=== PATIENT | female | born 1950 | race Caucasian/White ===

== ENCOUNTER 2020-07-07 06:34 | Day surgery (SDC) | payer MEDICARE, BC ==
[~2020-07-07 06:34] MED LIST: Acetaminophen 325 MG Tab PO SCH; Lactated Ringers 1,000 ML IV SCH; Lidocaine 1%/Sod Bicarbonate in NS 8.4% 1 ML Syringe IDERM PRN; Lidocaine 2% with EPINEPHrine 1:200,000 20 ML SDV ONE; Midazolam 1 MG/ML 2 ML SDV ONE; Pregabalin 25 MG Cap PO SCH; Propofol 200 MG/20 ML SDV ONE; Sodium Chloride 0.9% 10 ML Syringe FLUSH PRN; fentaNYL 100 MCG/2 ML SDV ONE; oxyCODONE ER 10 MG TAB.ER PO SCH
[2020-07-07] MEDS ORDERED: Dexmedetomidine 200 MCG/2 ML SDV ONE (06:38)
[2020-07-07] MEDS ORDERED: Ropivacaine 0.5% 5 MG/ML 30 ML SDV ONE (06:39)
[2020-07-07] MEDS ORDERED: Dexamethasone 4 MG/ML 5 ML MDV ONE (06:45)
[2020-07-07] MEDS ORDERED: Vancomycin 1 GM SDV ONE (07:28)
--- NOTE | 2020-07-07 07:37 | PCM.PREANE ---
Preanesthetic Assessment - Procedure Proposed Procedure: Left reverse total shoulder replacement - Anesthesia/Transfusion/Family Hx Anesthesia History: Prior Anesthesia Without Reaction Transfusion History: No Prior Transfusion(s) Intubation History: Unknown - Review of Systems General: No Symptoms Pulmonary: No Symptoms Cardiovascular: No Symptoms Gastrointestinal: No Symptoms Neurological: No Symptoms Other: Reports: None - Physical Assessment NPO Status Date: 07/06/20 NPO Status Time: 18:30 Vital Signs: Last Vital Signs Temp 97.9 F 07/07/20 06:30 Pulse 78 07/07/20 07:22 Resp 18 07/07/20 07:22 BP 135/69 07/07/20 07:22 Pulse Ox 98 07/07/20 07:22 Height: 1.6 m Weight: 84.1 kg ASA Class: 2 Mental Status: Alert & Oriented x3 Airway Class: Mallampati = 2 Dentition: Reports: Normal Dentition, [place](s), Bridge Thyro-Mental Finger Breadths: 3 Mouth Opening Finger Breadths: 3 ROM/Head Extension: Full Lungs: Clear to Auscultation, Normal Respiratory Effort Cardiovascular: Regular Rate, Regular Rhythm - Lab Values: Laboratory Last Values MRSA (PCR) Negative 06/27/20 12:50 - Allergies Allergies/Adverse Reactions: Allergies Allergy/AdvReac Type Severity Reaction Status Date / Time furosemide Allergy Other Verified 07/06/20 10:38 nicotine Allergy Rash Verified 07/06/20 10:38 - Acknowledgements Anesthesia Type Planned: General Anesthesia, Regional Block (left interscalene for postoperative pain) Pt an Appropriate Candidate for the Planned Anesthesia: Yes Alternatives and Risks of Anesthesia Discussed w Pt/Guardian: Yes Pt/Guardian Understands and Agrees with Anesthesia Plan: Yes PreAnesthesia Questionnaire HEENT History: Reports: Allergic Rhinitis, Cataract, Impaired Vision Cardiovascular History: Reports: High Cholesterol, Other (See Below) Other Cardiovascular History: palpitations Respiratory History: Reports: Sleep Apnea Other Respiratory History: abnormal chest CT Gastrointestinal History: Reports: GERD, Hemorrhoids, Other (See Below) Other Gastrointestinal History: intermittent constipation Genitourinary History: Reports: None HOSPICE COMMUNITY LIAISON History: Reports: Other (See Below) Other OB/BYN History: postmenopausal Musculoskeletal History: Reports: Other (See Below) Other Musculoskeletal History: right hip pain, right knee pain, right shoulder pain, arthralgia, bone disorder, trapezius muscle strain Neurological History: Reports: Other (See Below) Other Neuro History: benign tremor Psychiatric History: Reports: Depression Endocrine/Metabolic History: Reports: None Hematologic History: Reports: Other (See Below) Other Hematologic History: leukocytosis, macrocytosis Immunologic History: Reports: None Oncologic (Cancer) History: Reports: Breast Dermatologic History: Reports: Other (See Below) Other Dermatologic History: skin neoplasm, seborrheic keratosis, right thigh mass - Infectious Disease History Infectious Disease History: Reports: None - Past Surgical History Head Surgeries/Procedures: Reports: None HEENT Surgical History: Reports: Tonsillectomy Cardiovascular Surgical History: Reports: None Respiratory Surgical History: Reports: None GI Surgical History: Reports: Appendectomy, Colonoscopy, EGD Female Surgical History: Reports: Hysterectomy, Mastectomy Male Surgical History: Reports: None Endocrine Surgical History: Reports: None Neurological Surgical History: Reports: None Musculoskeletal Surgical History: Reports: Carpal Tunnel, Shoulder Surgery Oncologic Surgical History: Reports: Mastectomy - SUBSTANCE USE Tobacco Use Status *Q: Former Tobacco User Recreational Drug Use History: No - HOME MEDS Home Medications: Home Meds Calcium Citrate/Vitamin D3 [Calcitrate + Vit D Cap (315 MG/250 UNITS)] 1 each PO BID 03/03/18 [History] Cholecalciferol (Vitamin D3) [Vitamin D3] 5,000 unit PO DAILY 03/03/18 [History] Pantoprazole Sodium [Protonix] 40 mg PO DAILY 03/03/18 [History] Simvastatin 20 mg PO DAILY 03/03/18 [History] Ubidecarenone [Coq-10] 100 mg PO DAILY 03/03/18 [History] dilTIAZem HCL [Dilt-XR] 120 mg PO DAILY 03/03/18 [History] Anastrozole [Arimidex] 1 mg PO DAILY 07/06/20 [History] Citalopram [Citalopram HBr] 20 mg PO DAILY 07/06/20 [History] Docusate Sodium [Colace] 100 - 300 mg PO DAILY PRN 07/06/20 [History] Famotidine [Pepcid] 20 mg PO BEDTIME 07/06/20 [History] Melatonin 10 mg PO BEDTIME 07/06/20 [History] Multivitamin 1 tab PO DAILY 07/06/20 [History] Aspirin [Aspirin EC] 325 mg PO DAILY #40 tablet. 07/07/20 [Rx] Cyclobenzaprine [Flexeril] 10 mg PO BID PRN #20 tab 07/07/20 [Rx] oxyCODONE 5 - 10 mg PO Q4H PRN #40 tab 07/07/20 [Rx] - CURRENT (IN HOUSE) MEDS Current Meds: Current Medications Acetaminophen (Tylenol) 975 mg PO ONETIME GUERRERO Stop: 07/07/20 13:00 Last Admin: 07/07/20 07:26 Dose: 975 mg Documented by: Lactated Ringer's (Ringers, Lactated) 1,000 mls @ 125 mls/hr IV ASDIRECTED GUERRERO Stop: 07/07/20 23:00 Last Admin: 07/07/20 06:45 Dose: 125 mls/hr Documented by: Lidocaine/Sodium Bicarbonate (Buffered Lidocaine 1% In Ns 8.4%) 0.25 ml IDERM ONETIME PRN PRN Reason: Prior to IV Start Stop: 07/07/20 18:00 Last Admin: 07/07/20 06:45 Dose: 0.25 ml Documented by: Oxycodone HCl (Oxycontin) 10 mg PO ONETIME GUERRERO Stop: 07/07/20 13:00 Last Admin: 07/07/20 07:26 Dose: 10 mg Documented by: Pregabalin (Lyrica) 50 mg PO ONETIME GUERRERO Stop: 07/07/20 13:00 Last Admin: 07/07/20 07:26 Dose: 50 mg Documented by: Sodium Chloride (Saline Flush) 10 ml FLUSH ASDIRECTED PRN PRN Reason: Keep Vein Open Stop: 07/07/20 18:00 Discontinued Medications Dexamethasone (Dexamethasone) Confirm Administered Dose 20 mg .ROUTE .STK-MED ONE Stop: 07/07/20 06:46 Dexmedetomidine HCl (Precedex) Confirm Administered Dose 200 mcg .ROUTE .STK-MED ONE Stop: 07/07/20 06:39 Fentanyl (Sublimaze) Confirm Administered Dose 100 mcg .ROUTE .STK-MED ONE Stop: 07/07/20 06:34 Lidocaine/Epinephrine (Xylocaine-Mpf 2%-Epi 1:200,000) Confirm Administered Dose 20 ml .ROUTE .STK-MED ONE Stop: 07/07/20 06:35 Midazolam HCl (Versed 1 Mg/Ml) Confirm Administered Dose 2 mg .ROUTE .STK-MED ONE Stop: 07/07/20 06:34 Propofol (Diprivan 20 Ml) Confirm Administered Dose 400 mg .ROUTE .STK-MED ONE Stop: 07/07/20 06:34 Ropivacaine (Naropin 0.5%) Confirm Administered Dose 30 ml .ROUTE .STK-MED ONE Stop: 07/07/20 06:40 Tranexamic Acid (Cyklokapron) Confirm Administered Dose 1,000 mg .ROUTE .STK-MED ONE Stop: 07/07/20 07:29 Vancomycin HCl (Vancomycin) Confirm Administered Dose 1 gm .ROUTE .STK-MED ONE Stop: 07/07/20 07:29
--- NOTE | 2020-07-07 07:40 | PCM.PRNOTE ---
- Free Text/Narrative Note: Postoperative regional pain control requested by surgeon. Pre-op Dx: Left shoulder osteoarthritis Surgical procedure: Left reverse total shoulder arthroplasty Procedure: Lt Interscalene block with U/S guidance Requesting physician: Dr. Dale Galvan Risks and benefits discussed with the patient preoperatively including infection, bleeding, incomplete or failed block, possible nerve damage, local anesthetic toxicity. Chart reviewed, VS stable. Permit signed. Patient in preoperative room 7, stable , alert and awake. Time out performed at 07:10. Oxygen 3L via FM. Left side of the neck was prepped with Chloraprep x 1 and allowed to dry. Midazolam IV 2 mg given. Under aseptic technique, the brachial plexus was identified under ultrasound prior to needle insertion. Local infiltration with 2mls of 1% Lidocaine. 2" Stimuplex needle #22 G was inserted under US guidance. Neuromuscular response of biceps contraction and forearm twitching elicited at 0.6 mA. Under direct visualization of needle tip the injection of 0.5% Ropivacaine (15 mls) and 2% PF Lidocaine (5 mls) with 1:200k epinephrine, with 8 mg of Dexamethasone and 40 mcg of Dexmedetomidine, total of 22 mls in divided doses, maintaining negative aspiration was completed without problems. No local anesthetic toxicity was noted. Patient is awake, stable and tolerated the procedure well. Please see the attached U/S images Time: 07:10 - 07:22
[2020-07-07] MEDS ORDERED: ceFAZolin 1 GM Vial ONE (08:13)
[2020-07-07] MEDS ORDERED: Ondansetron 4 MG/2 ML SDV ONE (08:13)
[2020-07-07] MEDS ORDERED: Lidocaine 1% 2 ML ONE ×2 (08:23)
[2020-07-07] MEDS ORDERED: Lactated Ringers 1,000 ML ONE (09:17)
--- NOTE | 2020-07-07 09:54 | CR ---
Left shoulder: 4 views left shoulder were obtained. Comparison: No prior left shoulder exam is available Study shows placement of a reverse left shoulder prosthesis. No discrete underlying bony abnormality is otherwise seen. Fluoroscopy time is given as 6.0 seconds. Impression: 1. Procedural study as noted above. Diagnostic code #2
--- NOTE | 2020-07-07 10:22 | PCM48HPAN ---
Post Anesthesia Note - EVALUATION WITHIN 48HRS OF ANESTHETIC Vital Signs in Normal Range: Yes Patient Participated in Evaluation: Yes Respiratory Function Stable: Yes Airway Patent: Yes Cardiovascular Function Stable: Yes Hydration Status Stable: Yes Pain Control Satisfactory: Yes Nausea and Vomiting Control Satisfactory: Yes Mental Status Recovered: Yes Vital Signs: Last Vital Signs Temp 97.3 F 07/07/20 10:15 Pulse 60 07/07/20 10:15 Resp 16 07/07/20 10:15 BP 124/69 07/07/20 10:15 Pulse Ox 97 07/07/20 10:15
--- NOTE | 2020-07-07 10:40 | CR ---
Left shoulder: Single AP view of the left shoulder was obtained as a postoperative exam. Reverse left shoulder prosthesis is seen. Components are aligned. No discrete acute osseous finding is otherwise appreciated. Mild degenerative change is noted within the spine. Impression: 1. Recently placed left shoulder prosthesis. Diagnostic code #2
--- NOTE | 2020-07-07 12:04 | PCM.OPNOTE ---
- General Post-Op/Procedure Note Date of Surgery/Procedure: 07/07/20 Operative Procedure(s): left reverse total shoulder arthroplasty Pre Op Diagnosis: left glenohumeral osteoarthritis Post-Op Diagnosis: Same Anesthesia Technique: MAC, Regional Block Primary Surgeon: Dale Mclean Anesthesia Provider: Fabricio Handley Vacuum Filter Operator: Julissa Waters Vacuum Filter Operator: Fatuma Pastrana EBL in mLs: 100 Complications: None Condition: Good Free Text/Narrative:: 13 stem +4 poly 28 baseplate 32+6 glenosphere
[2020-07-07 13:47] VITALS: BP 125/63; PULSE 72
--- NOTE | 2020-07-08 15:50 | OR ---
DATE OF OPERATION: 07/07/2020 SURGEON: Dale Mclean MD OPERATION PERFORMED: Left reverse total shoulder arthroplasty. PREOPERATIVE DIAGNOSIS: Left shoulder glenohumeral arthrosis. POSTOPERATIVE DIAGNOSIS: Left shoulder glenohumeral arthrosis. ANESTHESIA: Technique: MAC with regional block. ANESTHESIA PROVIDER: Abby Max. ASSISTANTS: Julissa Waters PA-C, and Fatuma Pastrana LPN. ESTIMATED BLOOD LOSS: 100 mL. COMPLICATIONS: None. CONDITION: Stable. IMPLANTS: 1. Winnie size 13, 135-degree humeral stem. 2. Clara size +4 polyethylene liner. 3. Winnie 28 mm concentric glenoid base plate. 4. Clara size 32, +6 glenosphere. DESCRIPTION OF PROCEDURE: The patient was identified in the preoperative holding area. Proper site was marked and identified by the surgeon. The patient was taken back to the operating theater where after adequate anesthesia, the patient was placed on a radiolucent table. The left upper extremity was then sterilely prepped and draped in the usual sterile fashion. OR time-out was performed. The patient received 2 g IV Ancef. The patient was placed in reverse Trendelenburg position. Standard deltopectoral incision was made. Cephalic vein was identified and was retracted laterally with the deltoid. Clavipectoral fascia was incised and the conjoined tendon was retracted medially. The anterior humeral circumflex vessels were ligated. Biceps tendon was identified. A #2 FiberWire was used for tying of the biceps near the level of the pectoralis. A tenotomy was performed proximally to this level and was taken all the way back to the level of the glenoid. Peel down of the subscapularis tendon was done at this time, and the humeral head was dislocated. Humeral head cut was then completed and was found to be adequate. Attention was turned to the glenoid. Anterior and posterior glenoid retractors were placed. Circumferential removal of the labrum was done at this time. Once this was completed, a guide pin was placed in center-center position, roughly 5 degrees of inferior tilt. A 32 mm reamer was then used until there was good bony bleeding bed. Guide pin was then removed and the 20 mm base plate was screwed into place. It had good compression by the central compression screw. An inferior-superior locking screw was then placed and a 32, +6 glenosphere was impacted into place. Attention was turned to the humerus. Starting with a starter awl, I was then able to do a diaphyseal reamer up to size 13 and I was able to broach up to a size 13, which was found to be rotationally and vertically stable. A +4 trial liner was placed. The shoulder was relocated. C-arm fluoroscopy showed well positioned implants with no signs of fracture. The patient's shoulder was stable throughout range of motion. There were no signs of over tensioning. Shoulder was then dislocated. Trial implants were then removed. The humeral stem was constructed on the back table with the 135 degree, +4 liner. This was then impacted into the humerus, which was then relocated. C-arm fluoroscopy was again utilized to make sure there was no fracture and all the parts were in proper position. 400 mL of Irrisept irrigation was irrigated through the shoulder along with 1 L pulse lavage irrigation with Ancef. Topical tranexamic acid and vancomycin powder were applied. 2-0 Vicryl was used subcutaneously, and Prineo was used for closure of the skin. The patient tolerated the procedure well and was sent to PACU in stable condition in a pillow sling. MMMARTINEZ /[id number]
== END 2020-07-07 12:49 | disposition home or self-care (01) ==
LOC: JD.SDS 06:34
PROVIDERS: ATTEND Orthopaedic Surgery
DX: M19.012 Primary osteoarthritis, left shoulder (principal); G89.29 Other chronic pain; K21.9 Gastro-esophageal reflux disease without esophagitis; G47.33 Obstructive sleep apnea (adult) (pediatric); E78.00 Pure hypercholesterolemia, unspecified; R91.8 Other nonspecific abnormal finding of lung field; R00.2 Palpitations; D72.829 Elevated white blood cell count, unspecified; Z88.8 Allergy status to other drugs, medicaments and biological substances; Z87.891 Personal history of nicotine dependence; Z79.82 Long term (current) use of aspirin; Z79.899 Other long term (current) drug therapy; Z90.10 Acquired absence of unspecified breast and nipple; Z90.710 Acquired absence of both cervix and uterus; Z98.890 Other specified postprocedural states; Z85.3 Personal history of malignant neoplasm of breast; G89.18 Other acute postprocedural pain
CPT/HCPCS: 23472; 73020; 76000; 87641; 97161; 97165; A9270; C1713; C1769; C1776; J0690; J1100; J2250; J2405; J2704; J2795; J3010; J3370; J7120; 01638; 64415; 76942

== ENCOUNTER 2020-09-10 06:59 | Day surgery (SDC) | payer MEDICARE, BC ==
[~2020-09-10 06:59] MED LIST changes: -Acetaminophen 325 MG Tab PO SCH; -Lidocaine 2% with EPINEPHrine 1:200,000 20 ML SDV ONE; -Midazolam 1 MG/ML 2 ML SDV ONE; -Pregabalin 25 MG Cap PO SCH; -Propofol 200 MG/20 ML SDV ONE; -fentaNYL 100 MCG/2 ML SDV ONE; -oxyCODONE ER 10 MG TAB.ER PO SCH
[2020-09-10] MEDS ORDERED: Lidocaine 1% 30 ML SDV ONE (07:18)
[2020-09-10] MEDS ORDERED: Bupivacaine 0.5% 30 ML SDV ONE (07:18)
--- NOTE | 2020-09-10 07:25 | PCM.PREANE ---
Preanesthetic Assessment - Procedure Proposed Procedure: wide excision of basal cell carcinoma of the face - Anesthesia/Transfusion/Family Hx Anesthesia History: Prior Anesthesia Without Reaction Family History of Anesthesia Reaction: No Transfusion History: No Prior Transfusion(s) Intubation History: Unknown - Review of Systems General: No Symptoms Pulmonary: No Symptoms Cardiovascular: No Symptoms Gastrointestinal: No Symptoms, Other (GERD - under controll with medication, non currently ) Neurological: No Symptoms Other: Reports: Easy Bleeding, Easy Bruising (off aspirin since last ), Depression - Physical Assessment NPO Status Date: 09/09/20 NPO Status Time: 20:00 Height: 1.6 m Weight: 84 kg ASA Class: 3 Mental Status: Alert & Oriented x3 Airway Class: Mallampati = 1 Dentition: Reports: Normal Dentition Thyro-Mental Finger Breadths: 3 Mouth Opening Finger Breadths: 4 ROM/Head Extension: Full Lungs: Clear to Auscultation, Normal Respiratory Effort - Allergies Allergies/Adverse Reactions: Allergies Allergy/AdvReac Type Severity Reaction Status Date / Time furosemide Allergy Other Verified 09/09/20 09:52 nicotine Allergy Rash Verified 09/09/20 09:52 - Blood Blood Available: No - Anesthesia Plan Pre-Op Medication Ordered: None - Acknowledgements Anesthesia Type Planned: MAC Pt an Appropriate Candidate for the Planned Anesthesia: Yes Alternatives and Risks of Anesthesia Discussed w Pt/Guardian: Yes Pt/Guardian Understands and Agrees with Anesthesia Plan: Yes PreAnesthesia Questionnaire HEENT History: Reports: Allergic Rhinitis, Cataract, Impaired Vision Cardiovascular History: Reports: High Cholesterol, Other (See Below) Other Cardiovascular History: palpitations Respiratory History: Reports: Sleep Apnea Other Respiratory History: with CPAP Gastrointestinal History: Reports: GERD, Hemorrhoids, Other (See Below) Other Gastrointestinal History: intermittent constipation Genitourinary History: Reports: None SOCIAL WORK THERAPIST History: Reports: Other (See Below) Other OB/BYN History: postmenopausal Musculoskeletal History: Reports: Other (See Below) Other Musculoskeletal History: right hip pain, right knee pain, right shoulder pain Neurological History: Other Neuro History: benign tremor Psychiatric History: Reports: Depression Endocrine/Metabolic History: Reports: None Hematologic History: Other Hematologic History: leukocytosis, macrocytosis Immunologic History: Reports: None Oncologic (Cancer) History: Reports: Breast Dermatologic History: Reports: Other (See Below) Other Dermatologic History: skin neoplasm, seborreheic keratosis, right thigh mass - Infectious Disease History Infectious Disease History: Reports: Chicken Pox, Measles - Past Surgical History Head Surgeries/Procedures: Reports: None HEENT Surgical History: Reports: Tonsillectomy Cardiovascular Surgical History: Reports: None Respiratory Surgical History: Reports: None GI Surgical History: Reports: Appendectomy, Colonoscopy, EGD Female Surgical History: Reports: Hysterectomy Male Surgical History: Reports: None Endocrine Surgical History: Reports: None Neurological Surgical History: Reports: None Musculoskeletal Surgical History: Reports: Shoulder Surgery Oncologic Surgical History: Reports: Mastectomy - SUBSTANCE USE Tobacco Use Status *Q: Former Tobacco User Recreational Drug Use History: No - HOME MEDS Home Medications: Home Meds Calcium Citrate/Vitamin D3 [Calcitrate + Vit D Cap (315 MG/250 UNITS)] 1 each PO BID 03/03/18 [History] Cholecalciferol (Vitamin D3) [Vitamin D3] 5,000 unit PO DAILY 03/03/18 [History] Pantoprazole Sodium [Protonix] 40 mg PO DAILY 03/03/18 [History] Simvastatin 20 mg PO DAILY 03/03/18 [History] Ubidecarenone [Coq-10] 100 mg PO DAILY 03/03/18 [History] dilTIAZem HCL [Dilt-XR] 120 mg PO DAILY 03/03/18 [History] Anastrozole [Arimidex] 1 mg PO DAILY 07/06/20 [History] Citalopram [Citalopram HBr] 20 mg PO DAILY 07/06/20 [History] Docusate Sodium [Colace] 100 - 300 mg PO DAILY PRN 07/06/20 [History] Famotidine [Pepcid] 20 mg PO BEDTIME 07/06/20 [History] Melatonin 10 mg PO BEDTIME 07/06/20 [History] Multivitamin 1 tab PO DAILY 07/06/20 [History] - CURRENT (IN HOUSE) MEDS Current Meds: Current Medications Lactated Ringer's (Ringers, Lactated) 1,000 mls @ 125 mls/hr IV ASDIRECTED GUERRERO Stop: 09/10/20 23:00 Lidocaine/Sodium Bicarbonate (Lidocaine 1%/Sod Bicarbonate In Ns 8.4% 1 Ml Syringe) 0.25 ml IDERM ONETIME PRN PRN Reason: Prior to IV Start Stop: 09/10/20 18:00 Sodium Chloride (Sodium Chloride 0.9% 10 Ml Syringe) 10 ml FLUSH ASDIRECTED PRN PRN Reason: Keep Vein Open Stop: 09/10/20 18:00 Discontinued Medications Bupivacaine HCl (Bupivacaine 0.5% 30 Ml Sdv) Confirm Administered Dose 30 ml .ROUTE .STK-MED ONE Stop: 09/10/20 07:19 Lidocaine HCl (Lidocaine 1% 30 Ml Sdv) Confirm Administered Dose 30 ml .ROUTE .STK-MED ONE Stop: 09/10/20 07:19
[2020-09-10] MEDS ORDERED: Bupivacaine 0.5%/EPINEPHrine 1:200,000 50 ML MDV ONE (07:33)
[2020-09-10] MEDS ORDERED: Propofol 200 MG/20 ML SDV ONE ×2 (07:37→07:38)
[2020-09-10] MEDS ORDERED: Lidocaine 1% 0 ML ONE (07:38)
[2020-09-10] MEDS ORDERED: fentaNYL 100 MCG/2 ML SDV ONE (07:42)
[2020-09-10] MEDS ORDERED: Midazolam 1 MG/ML 2 ML SDV ONE (07:42)
[2020-09-10] MEDS ORDERED: Ondansetron 4 MG/2 ML SDV IVPUSH PRN (07:51)
[2020-09-10] MEDS ORDERED: fentaNYL 100 MCG/2 ML SDV IVPUSH PRN (07:51)
[2020-09-10] MEDS ORDERED: HYDROmorphone 0.5 MG/0.5 ML Syringe IVPUSH PRN (07:51)
--- NOTE | 2020-09-10 09:22 | PCM48HPAN ---
Post Anesthesia Note - EVALUATION WITHIN 48HRS OF ANESTHETIC Vital Signs in Normal Range: Yes Patient Participated in Evaluation: Yes Respiratory Function Stable: Yes Airway Patent: Yes Cardiovascular Function Stable: Yes Hydration Status Stable: Yes Pain Control Satisfactory: Yes Nausea and Vomiting Control Satisfactory: Yes Mental Status Recovered: Yes Vital Signs: Last Vital Signs 141/107 95 ra 70 12 98.6 Temp 36.7 C 09/10/20 07:05 Pulse 69 09/10/20 07:05 Resp 16 09/10/20 07:05 BP 135/61 09/10/20 07:05 Pulse Ox 96 09/10/20 07:05
[2020-09-10 10:01] VITALS: BP 110/77; PULSE 77
--- NOTE | 2020-09-10 15:00 | PCM.PRNOTE ---
- Free Text/Narrative Note: Date: 09/10/2020 Operation: excision of left mid-face basal cell carcinoma Surgeon: Anshul Guadalupe MD Findings: frozen section showed residual BCC within specimen with no margin involvement. Detailed Report: The patient was taken to the OR and placed supine on the table. The left face lesion measured about 3 mm in diameter. The skin was prepped with iodine and drapes were placed. Time out was performed. The lesion was excised within a transversely oriented ellipse measuring 1 cm in diameter using the [place] tip electrode. Excision was carried down to subcutaneous tissue. The specimen was oriented with a stitch placed at the medial aspect. Frozen section confirmed negative margins. The wound came together nicely with transverse closure with five interrupted 5-0 prolene sutures. The patient tolerated the procedure well.
== END 2020-09-10 09:57 | disposition home or self-care (01) ==
LOC: JD.SDS 06:59
PROVIDERS: ATTEND Surgery
DX: C44.319 Basal cell carcinoma of skin of other parts of face (principal); E78.5 Hyperlipidemia, unspecified; G47.33 Obstructive sleep apnea (adult) (pediatric); F17.210 Nicotine dependence, cigarettes, uncomplicated; Z88.8 Allergy status to other drugs, medicaments and biological substances; Z79.82 Long term (current) use of aspirin; Z79.899 Other long term (current) drug therapy; Z98.890 Other specified postprocedural states
CPT/HCPCS: 11642; J2250; J3490; J7120; 00300; 88305; 88331; 88332; J2704; J3010

== ENCOUNTER 2021-02-02 07:57 | Day surgery (SDC) | payer MEDICARE, BC ==
[~2021-02-02 07:57] MED LIST changes: +Acetaminophen 325 MG Tab PO ONE; +EPINEPHrine 1 MG/ML SDV ONE; +Lactated Ringers 1,000 ML ONE; +Midazolam 1 MG/ML 2 ML SDV ONE; +Morphine 8 MG, EPINEPHrine 0.3 MG, Cefuroxime 750 MG, Ketorolac 30 MG, Sodium Chloride ... PRN; +Pregabalin 25 MG Cap PO ONE; +Propofol 200 MG/20 ML SDV ONE; +Ropivacaine 0.5% 5 MG/ML 30 ML SDV ONE; +ceFAZolin 1 GM Vial ONE; +fentaNYL 100 MCG/2 ML SDV ONE; +oxyCODONE ER 10 MG TAB.ER PO ONE
--- NOTE | 2021-02-02 08:10 | PCM.PREANE ---
Preanesthetic Assessment - Anesthesia/Transfusion/Family Hx Anesthesia History: Prior Anesthesia Without Reaction Family History of Anesthesia Reaction: No Transfusion History: No Prior Transfusion(s) Intubation History: Unknown - Review of Systems General: Other (hx of breast ca with mastectomy on right, no use right arm. BMI 33, his of basal cell ca, leukocytosis) Pulmonary: Other (TRACEY with CPAP, hx smoker utilizes nicotine gum, pulmonary mass that is being monitored every 6 months) Cardiovascular: Palpitations (hx of palpitations) Gastrointestinal: Other (GERD controlled on meds) Neurological: Tingling (left leg, has been seeing PT for it) Other: Reports: Easy Bruising (on daily ASA), Thyroid Problems, Depression - Physical Assessment NPO Status Date: 02/01/21 NPO Status Time: 20:00 Weight: 84.5 kg ASA Class: 3 Mental Status: Alert & Oriented x3 Airway Class: Mallampati = 2 Dentition: Reports: Normal Dentition Thyro-Mental Finger Breadths: 3 Mouth Opening Finger Breadths: 3 ROM/Head Extension: Full Lungs: Clear to Auscultation, Normal Respiratory Effort Cardiovascular: Regular Rate, Regular Rhythm - Allergies Allergies/Adverse Reactions: Allergies Allergy/AdvReac Type Severity Reaction Status Date / Time furosemide Allergy Other Verified 01/30/21 17:48 nicotine Allergy Rash Verified 01/30/21 17:48 Sulfa (Sulfonamide Allergy unknown Verified 01/30/21 17:48 Antibiotics) - Blood Blood Available: No Product(s) Available: None - Anesthesia Plan Pre-Op Medication Ordered: None - Acknowledgements Anesthesia Type Planned: Spinal Pt an Appropriate Candidate for the Planned Anesthesia: Yes Alternatives and Risks of Anesthesia Discussed w Pt/Guardian: Yes Pt/Guardian Understands and Agrees with Anesthesia Plan: Yes PreAnesthesia Questionnaire HEENT History: Reports: Allergic Rhinitis, Cataract, Impaired Vision Cardiovascular History: Reports: High Cholesterol, Other (See Below) Other Cardiovascular History: palpitations Respiratory History: Reports: Sleep Apnea Other Respiratory History: with CPAP Gastrointestinal History: Reports: GERD, Hemorrhoids, Other (See Below) Other Gastrointestinal History: intermittent constipation Genitourinary History: Reports: None PUMP SERVICER History: Reports: Other (See Below) Other OB/BYN History: postmenopausal Musculoskeletal History: Reports: Other (See Below) Other Musculoskeletal History: right hip pain, right knee pain, right shoulder pain Neurological History: Reports: None Other Neuro History: benign tremor Psychiatric History: Reports: Depression Endocrine/Metabolic History: Reports: None Hematologic History: Reports: None Other Hematologic History: leukocytosis, macrocytosis Immunologic History: Reports: None Oncologic (Cancer) History: Reports: None Dermatologic History: Reports: Other (See Below) Other Dermatologic History: growth to thigh- resoved - Infectious Disease History Infectious Disease History: Reports: Chicken Pox, Measles - Past Surgical History Head Surgeries/Procedures: Reports: None HEENT Surgical History: Reports: Tonsillectomy Cardiovascular Surgical History: Reports: None Respiratory Surgical History: Reports: None GI Surgical History: Reports: Appendectomy, Colonoscopy, EGD Female Surgical History: Reports: None, Hysterectomy Male Surgical History: Reports: None Endocrine Surgical History: Reports: None Neurological Surgical History: Reports: None Musculoskeletal Surgical History: Reports: Shoulder Surgery Oncologic Surgical History: Reports: None - SUBSTANCE USE Tobacco Use Status *Q: Former Tobacco User Recreational Drug Use History: No - HOME MEDS Home Medications: Home Meds Calcium Citrate/Vitamin D3 [Calcitrate + Vit D Cap (315 MG/250 UNITS)] 1 each PO BID 03/03/18 [History] Cholecalciferol (Vitamin D3) [Vitamin D3] 5,000 unit PO DAILY 03/03/18 [History] Pantoprazole Sodium [Protonix] 40 mg PO DAILY 03/03/18 [History] Simvastatin 20 mg PO DAILY 03/03/18 [History] Ubidecarenone [Coq-10] 100 mg PO DAILY 03/03/18 [History] dilTIAZem HCL [Dilt-XR] 120 mg PO DAILY 03/03/18 [History] Anastrozole [Arimidex] 1 mg PO DAILY 07/06/20 [History] Citalopram [Citalopram HBr] 20 mg PO DAILY 07/06/20 [History] Docusate Sodium [Colace] 100 - 300 mg PO DAILY PRN 07/06/20 [History] Famotidine [Pepcid] 20 mg PO BEDTIME 07/06/20 [History] Melatonin 10 mg PO BEDTIME 07/06/20 [History] Multivitamin 1 tab PO DAILY 07/06/20 [History] Aspirin [Aspirin EC] 325 mg PO BID #28 tab 02/02/21 [Rx] Cyclobenzaprine [Flexeril] 10 mg PO BID PRN #20 tab 02/02/21 [Rx] Rivaroxaban [Xarelto] 10 mg PO DAILY #14 tab 02/02/21 [Rx] oxyCODONE 5 - 10 mg PO Q4H PRN #40 tab 02/02/21 [Rx] - CURRENT (IN HOUSE) MEDS Current Meds: Current Medications Morphine Sulfate 8 mg/Epinephrine HCl 0.3 mg/Cefuroxime Sodium 750 mg/Ketorolac Tromethamine 30 mg/Sodium Chloride 7.9 ml 0 mg .XX ASDIRECTED PRN PRN Reason: Pain Stop: 02/02/21 16:00 Lactated Ringer's (Ringers, Lactated) 1,000 mls @ 125 mls/hr IV ASDIRECTED GUERRERO Stop: 02/02/21 23:00 Lidocaine/Sodium Bicarbonate (Lidocaine 1%/Sod Bicarbonate In Ns 8.4% 1 Ml Syringe) 0.25 ml IDERM ONETIME PRN PRN Reason: Prior to IV Start Stop: 02/02/21 18:00 Sodium Chloride (Sodium Chloride 0.9% 10 Ml Syringe) 10 ml FLUSH ASDIRECTED PRN PRN Reason: Keep Vein Open Stop: 02/02/21 18:00 Discontinued Medications Acetaminophen (Acetaminophen 325 Mg Tab) 975 mg PO NOW ONE Stop: 02/02/21 06:01 Cefazolin Sodium (Cefazolin 1 Gm Vial) Confirm Administered Dose 2 gm .ROUTE .STK-MED ONE Stop: 02/02/21 07:10 Epinephrine HCl (Epinephrine 1 Mg/Ml Sdv) Confirm Administered Dose 1 mg .ROUTE .STK-MED ONE Stop: 02/02/21 07:17 Fentanyl (Fentanyl 100 Mcg/2 Ml Sdv) Confirm Administered Dose 100 mcg .ROUTE .STK-MED ONE Stop: 02/02/21 07:10 Lactated Ringer's (Ringers, Lactated) Confirm Administered Dose 1,000 mls @ as directed .ROUTE .STK-MED ONE Stop: 02/02/21 07:10 Midazolam HCl (Midazolam 1 Mg/Ml 2 Ml Sdv) Confirm Administered Dose 2 mg .ROUTE .STK-MED ONE Stop: 02/02/21 07:10 Oxycodone HCl (Oxycodone Er 10 Mg Tab.Er) 10 mg PO ONETIME ONE Stop: 02/02/21 06:01 Pregabalin (Pregabalin 25 Mg Cap) 50 mg PO ONETIME ONE Stop: 02/02/21 06:01 Propofol (Propofol 200 Mg/20 Ml Sdv) Confirm Administered Dose 600 mg .ROUTE .STK-MED ONE Stop: 02/02/21 07:10 Ropivacaine (Ropivacaine 0.5% 5 Mg/Ml 30 Ml Sdv) Confirm Administered Dose 30 ml .ROUTE .STK-MED ONE Stop: 02/02/21 07:17
[2021-02-02] MEDS ORDERED: Vancomycin 1 GM SDV ONE (08:26)
[2021-02-02] MEDS ORDERED: Pregabalin 25 MG Cap PO ONE (08:45)
[2021-02-02] MEDS ORDERED: Acetaminophen 325 MG Tab PO ONE (08:45)
[2021-02-02] MEDS ORDERED: oxyCODONE ER 10 MG TAB.ER PO ONE (08:45)
--- NOTE | 2021-02-02 08:56 | PCM.SN.2 ---
Time Documentation #1 Interpretation EKG Date: 02/02/21 Rhythm: NSR Jackson: Normal P-Wave: Present QRS: Normal ST-T: Depressed (slight St depression V4-46)
[2021-02-02] MEDS ORDERED: HYDROmorphone 0.5 MG/0.5 ML Syringe IVPUSH PRN (09:30)
[2021-02-02] MEDS ORDERED: fentaNYL 100 MCG/2 ML SDV IVPUSH PRN (09:30)
[2021-02-02] MEDS ORDERED: Ondansetron 4 MG/2 ML SDV IVPUSH PRN (09:30)
--- NOTE | 2021-02-02 10:48 | PCM.POSTAN ---
POST ANESTHESIA ASSESSMENT - MENTAL STATUS Mental Status: Alert, Oriented - VITAL SIGNS Vital Signs: Last Vital Signs Temp 36.4 C 02/02/21 08:38 Pulse Resp BP Pulse Ox - RESPIRATORY Respiratory Status: Respiratory Rate WNL, Airway Patent, O2 Saturation Stable, Supplemental Oxygen - CARDIOVASCULAR CV Status: Pulse Rate WNL, Blood Pressure Stable - GASTROINTESTINAL GI Status: No Symptoms - PAIN Pain Score: 0 - POST OP HYDRATION Hydration Status: Adequate & Stable
--- NOTE | 2021-02-02 11:18 | PCM.SN.2 ---
- Free Text/Narrative Note: Right selective femoral nerve block at the adductor canal for post-procedure pain control under US guidance requested by Dr. Mclean. Date:02/02/21 Time Out:1058 Start:1059 End: 1106 Chart reviewed. Consent signed. Questions answered. Appropriate monitors applied. Time out performed. Right mid-shaft femur identified with ultrasound, scanning medially of femur, the femoral artery in the adductor canal visualized, and the femoral nerve located laterally to the artery. The skin was prepped lateral to the ultrasound probe with chlorahexadine times two. The 21ga 4 insulated block needle was inserted under direct ultrasound guidance into the adductor canal. 25mL of 0.5% ropivacaine with 1:200,000 epinephrine was injected circumferentially around the nerve with intermittent negative aspiration noted. Patient tolerated the procedure well. Sterile technique noted along with sterile gloves, mask, and sterile probe cover. See picture on progress note and vital signs on nurses notes. Block completed in PACU. Viktoriya Mayes CRNA Time Documentation
--- NOTE | 2021-02-02 11:48 | CR ---
Right knee: AP and crosstable lateral views of the right knee were obtained. Comparison: Prior right knee CT exam of 01/21/21. Knee prosthesis is noted. Patellar prosthesis is seen. Components are aligned. Underlying bony structures show nothing acute. Soft tissue air is noted. Impression: 1. Satisfactory postoperative radiographic appearance of recently placed right knee prostheses. Diagnostic code #2
--- NOTE | 2021-02-02 12:34 | PCM48HPAN ---
Post Anesthesia Note - EVALUATION WITHIN 48HRS OF ANESTHETIC Vital Signs in Normal Range: Yes Patient Participated in Evaluation: Yes Respiratory Function Stable: Yes Airway Patent: Yes Cardiovascular Function Stable: Yes Hydration Status Stable: Yes Pain Control Satisfactory: Yes Nausea and Vomiting Control Satisfactory: Yes Mental Status Recovered: Yes Vital Signs: Last Vital Signs Temp 36.2 C 02/02/21 12:00 Pulse 65 02/02/21 12:00 Resp 16 02/02/21 12:00 BP 112/74 02/02/21 12:00 Pulse Ox 93 L 02/02/21 12:00
[2021-02-02] MEDS ORDERED: Cyclobenzaprine 10 MG Tab PO ONE (12:57)
[2021-02-02] MEDS ORDERED: oxyCODONE 5 MG Tab PO ONE (12:58)
[2021-02-02] MEDS ORDERED: Lactated Ringers 500 ML IV ONE (13:30)
[2021-02-02 15:06] VITALS: BP 108/89; PULSE 68
--- NOTE | 2021-02-10 17:41 | PCM.OPNOTE ---
- General Post-Op/Procedure Note Date of Surgery/Procedure: 02/02/21 Operative Procedure(s): right total knee arthroplasty with cliff obed robotics Pre Op Diagnosis: right knee osteoarthrosis Post-Op Diagnosis: Same Anesthesia Technique: Local, MAC, Spinal Primary Surgeon: Dale Mclean Anesthesia Provider: Viktoriya Mayes Regional Agronomist: Julissa Waters Regional Agronomist: Fatuma Pastrana EBL in mLs: 225 Complications: None Condition: Good Free Text/Narrative:: 5 femur 4 9mm 32x10
--- NOTE | 2021-02-16 11:49 | OR ---
DATE OF OPERATION: 02/02/2021 SURGEON: Dale Mclean MD OPERATION PERFORMED: Right total knee arthroplasty with [place] Shant robotic. PREOPERATIVE DIAGNOSIS: Right knee osteoarthrosis. POSTOPERATIVE DIAGNOSIS: Right knee osteoarthrosis. ANESTHESIA: Local MAC with spinal. ANESTHESIA PROVIDER: Viktoriya Mayes. ASSISTANTS: Julissa Waters PA-C and Fatuma Pastrana LPN. ESTIMATED BLOOD LOSS: 225 mL. COMPLICATIONS: None. CONDITION: Stable. IMPLANTS: 1. [place] size 5 press-fit CR femur. 2. Clara size 4 press-fit tibial baseplate. 3. [place] size 4, 9 mm CS polyethylene insert. 4. Clara size 32 x 10 mm press-fit asymmetric patella. DESCRIPTION OF PROCEDURE: The patient was identified in the preoperative holding area. Proper site was marked and identified by the surgeon. The patient was taken back to the operating theater where after adequate anesthesia, the patient's right lower extremity had a nonsterile tourniquet applied and was then sterilely prepped and draped in the usual sterile fashion. OR time-out was performed. The patient received 2 g IV Ancef. Right lower extremity was then exsanguinated. Tourniquet was insufflated to 250 mmHg. Standard anterior incision was made. Medial parapatellar arthrotomy was created. Deep fibers of the MCL were raised and anterior fat pad was resected. Attention was turned to the patella. Patella measured a 22 and was resected to a 13 for a 32 x 10 mm patella. Drill holes were drilled and found to have adequate bone. Two 4.0 Schanz pins were then placed intraincisionally on the femur for the Clara Shant robotic array, 2 more were placed on the tibia 3 fingerbreadths below the tibial tubercle. Checkpoints were placed on the femur and the tibia. Hip center rotation was obtained. Medial and lateral malleoli were marked. Femoral and tibial checkpoints were marked. 40 points were then obtained up both the femur and the tibia for the [place] Shant robotic plan. Symmetric flexion and extension gaps were then made for this patient. Straight saw blade was then brought in. Tibial cut, anterior femoral cut, anterior chamfer cut, and posterior cuts were then completed. The saw blade was switched. Distal femoral cut as well as posterior chamfer cuts were completed. All bony fragments were removed and osteophytes were removed. Medial and lateral meniscus were resected and any posterior osteophytes were removed. Attention was turned to the tibia. At this time, the size 4 trial baseplate was placed, size 5 trial femur was placed, a 9 mm trial spacer was placed. The patient had full extension and flexion. No varus or valgus instability or liftoff on the femur was noted. Femoral drill holes were drilled. Tibia was stamped and drilled in the proper rotation. At this time, the size 4 tibial baseplate was impacted in place. Size 5 femur was impacted in place. A 9 mm CS polyethylene insert was impacted in place. The patient's knee was brought to full extension. A 32 x 10 mm press-fit patella was pressed into place. The tourniquet was deflated. Bleeders were cauterized. 1 L pulse lavage irrigation with Ancef was irrigated through the knee along with 400 mL of Irrisept irrigation. Periarticular injection was completed. Topical tranexamic acid and vancomycin powder were applied. A #2 barbed suture was used for closure of the medial parapatellar arthrotomy, 2-0 Vicryl and Stratafix were used for subcutaneous closure, and Prineo was used for skin closure. The patient had a sterile soft dressing applied and sent to the PACU in stable condition. AREN /[id number]
== END 2021-02-02 15:00 | disposition home or self-care (01) ==
LOC: JD.SDS 07:57
PROVIDERS: ATTEND Orthopaedic Surgery
DX: M17.11 Unilateral primary osteoarthritis, right knee (principal); K21.9 Gastro-esophageal reflux disease without esophagitis; D72.829 Elevated white blood cell count, unspecified; G47.33 Obstructive sleep apnea (adult) (pediatric); E78.00 Pure hypercholesterolemia, unspecified; F32.9 Major depressive disorder, single episode, unspecified; M54.50 Low back pain, unspecified; D75.89 Other specified diseases of blood and blood-forming organs; R91.8 Other nonspecific abnormal finding of lung field; G89.18 Other acute postprocedural pain; Z88.2 Allergy status to sulfonamides; Z87.891 Personal history of nicotine dependence; Z88.8 Allergy status to other drugs, medicaments and biological substances; Z79.899 Other long term (current) drug therapy; Z90.49 Acquired absence of other specified parts of digestive tract; Z98.890 Other specified postprocedural states
CPT/HCPCS: 27447; 73560; 97116; 97161; A9270; C1713; C1776; J0171; J0690; J0697; J1885; J2250; J2270; J2370; J2405; J2704; J2795; J3370; J7120; 01402; J3010

== ENCOUNTER 2022-08-19 09:34 | Day surgery (SDC) | payer MEDICARE, BC ==
[~2022-08-19 09:34] MED LIST changes: -Acetaminophen 325 MG Tab PO ONE; +Cefuroxime 10 MG/ML SYRINGE EYELF SCH; -EPINEPHrine 1 MG/ML SDV ONE; -Lactated Ringers 1,000 ML IV SCH; -Lactated Ringers 1,000 ML ONE; +Lidocaine 1% PF 2 ML SDV INJECT SCH; -Lidocaine 1%/Sod Bicarbonate in NS 8.4% 1 ML Syringe IDERM PRN; -Midazolam 1 MG/ML 2 ML SDV ONE; -Morphine 8 MG, EPINEPHrine 0.3 MG, Cefuroxime 750 MG, Ketorolac 30 MG, Sodium Chloride ... PRN; +Pilocarpine 4% Ophth Soln 15 ML Bot EYELF SCH; +Polymyxin B/Trimethoprim 10 ML Bottle EYELF SCH; -Pregabalin 25 MG Cap PO ONE; -Propofol 200 MG/20 ML SDV ONE; -Ropivacaine 0.5% 5 MG/ML 30 ML SDV ONE; -Sodium Chloride 0.9% 10 ML Syringe FLUSH PRN; -ceFAZolin 1 GM Vial ONE; -fentaNYL 100 MCG/2 ML SDV ONE; -oxyCODONE ER 10 MG TAB.ER PO ONE
[2022-08-19] MEDS: Ofloxacin 0.3% Ophth Soln 5 ML Bottle EYELF SCH ×3 (09:59→11:42)
[2022-08-19] MEDS: Brimonidine 0.2% Ophth Soln 5 ML Bottle EYELF SCH ×3 (10:04→11:42)
[2022-08-19] MEDS: Phenylephrine 2.5% Ophth Soln 2 ML Bot EYELF SCH ×5 (10:09→11:22)
[2022-08-19] MEDS: Tropicamide 1% Ophth Soln 15 ML Bottle EYELF SCH ×4 (10:14→10:55)
[2022-08-19] MEDS: Tetracaine HCl/PF 0.5% 4 ML Bottle EYEBOTH SCH ×4 (11:11→11:30)
[2022-08-19 12:02] VITALS: BP 138/73; PULSE 80
== END 2022-08-19 12:00 | disposition home or self-care (01) ==
LOC: JD.SDS 09:34
PROVIDERS: ATTEND Ophthalmology
DX: H25.813 Combined forms of age-related cataract, bilateral (principal); H35.363 Drusen (degenerative) of macula, bilateral; H35.3121 Nonexudative age-related macular degeneration, left eye, early dry stage; H16.103 Unspecified superficial keratitis, bilateral; H16.223 Keratoconjunctivitis sicca, not specified as Sjogren's, bilateral; H02.834 Dermatochalasis of left upper eyelid; H02.831 Dermatochalasis of right upper eyelid; H21.81 Floppy iris syndrome; H21.42 Pupillary membranes, left eye; M19.90 Unspecified osteoarthritis, unspecified site; I11.9 Hypertensive heart disease without heart failure; K21.9 Gastro-esophageal reflux disease without esophagitis; F32.A Depression, unspecified; G47.30 Sleep apnea, unspecified; E78.00 Pure hypercholesterolemia, unspecified; J30.9 Allergic rhinitis, unspecified; Z98.890 Other specified postprocedural states; Z87.891 Personal history of nicotine dependence; Z79.899 Other long term (current) drug therapy; Z79.82 Long term (current) use of aspirin
CPT/HCPCS: 66982; A9270; J0697; J3490; V2788-GY

== ENCOUNTER 2022-09-16 07:00 | Day surgery (SDC) | payer MEDICARE, BC ==
[~2022-09-16 07:00] MED LIST changes: -Cefuroxime 10 MG/ML SYRINGE EYELF SCH; -Lidocaine 1% PF 2 ML SDV INJECT SCH; -Pilocarpine 4% Ophth Soln 15 ML Bot EYELF SCH; -Polymyxin B/Trimethoprim 10 ML Bottle EYELF SCH; +Polymyxin B/Trimethoprim 10 ML Bottle EYERT SCH
[2022-09-16] MEDS: Ofloxacin 0.3% Ophth Soln 5 ML Bottle EYERT SCH ×4 (07:21→08:58)
[2022-09-16] MEDS: Brimonidine 0.2% Ophth Soln 5 ML Bottle EYERT SCH ×4 (07:26→08:58)
[2022-09-16] MEDS ORDERED: Ondansetron 4 MG/2 ML SDV IVPUSH PRN (07:26)
[2022-09-16] MEDS: Phenylephrine 2.5% Ophth Soln 2 ML Bot EYERT SCH ×6 (07:30→08:39)
[2022-09-16] MEDS: Tropicamide 1% Ophth Soln 15 ML Bottle EYERT SCH ×4 (07:35→08:18)
[2022-09-16] MEDS: Lidocaine 1% PF 2 ML SDV INJECT SCH ×2 (07:44→08:48)
[2022-09-16] MEDS: Tetracaine HCl/PF 0.5% 4 ML Bottle EYEBOTH SCH ×5 (07:44→08:47)
[2022-09-16] MEDS: Cefuroxime 10 MG/ML SYRINGE EYERT SCH ×2 (07:44→08:57)
[2022-09-16] MEDS: Pilocarpine 4% Ophth Soln 15 ML Bot EYERT SCH ×2 (07:45→08:58)
[2022-09-16 09:10] VITALS: BP 115/62; PULSE 71
== END 2022-09-16 09:05 | disposition home or self-care (01) ==
LOC: JD.SDS 07:00
PROVIDERS: ATTEND Ophthalmology
DX: H25.811 Combined forms of age-related cataract, right eye (principal); H35.363 Drusen (degenerative) of macula, bilateral; H35.3131 Nonexudative age-related macular degeneration, bilateral, early dry stage; H16.103 Unspecified superficial keratitis, bilateral; H16.223 Keratoconjunctivitis sicca, not specified as Sjogren's, bilateral; H02.834 Dermatochalasis of left upper eyelid; H02.831 Dermatochalasis of right upper eyelid; M19.90 Unspecified osteoarthritis, unspecified site; E78.00 Pure hypercholesterolemia, unspecified; K21.9 Gastro-esophageal reflux disease without esophagitis; D72.829 Elevated white blood cell count, unspecified; Z85.3 Personal history of malignant neoplasm of breast; Z98.49 Cataract extraction status, unspecified eye; Z90.710 Acquired absence of both cervix and uterus; Z90.49 Acquired absence of other specified parts of digestive tract; Z79.899 Other long term (current) drug therapy; Z96.1 Presence of intraocular lens; Z88.2 Allergy status to sulfonamides; Z91.048 Other nonmedicinal substance allergy status
CPT/HCPCS: 66984; A9270; J0697; V2788; J3490